=== PATIENT | female | born 1940 | race Caucasian/White ===

== ENCOUNTER → 2016-11-29 | Outpatient (CLI) | payer MEDICARE ==
--- NOTE | 2016-12-05 08:45 | MM ---
Reason for exam: screening (asymptomatic). Last mammogram was performed 1 year and 5 months ago. History: Patient is postmenopausal. Family history of breast cancer in mother at age 50. Excisional biopsy of the left breast, October 19, 2004. Stereotactic core biopsy of the right breast, October 13, 2004. Stereotactic core biopsy of the right breast, October 13, 2004. Benign stereotactic core biopsy of the right breast, September 08, 1999. Cyst aspiration of the right breast. 3 core biopsies of the right breast. Physical Findings: A clinical breast exam by your physician is recommended on an annual basis and results should be correlated with mammographic findings. MG 3D Screening Mammo W/Cad Bilateral CC and MLO view(s) were taken. Prior study comparison: June 29, 2015, bilateral MG 3d screening mammo w/cad. The breast tissue is heterogeneously dense. This may lower the sensitivity of mammography. Previous mammotome biopsy in the right breast. No significant changes when compared with prior studies. ASSESSMENT: Benign, BI-RAD 2 RECOMMENDATION: Routine screening mammogram of both breasts in 1 year.
== END | disposition home or self-care (01) ==
LOC: RADMAMWWP 09:28
PROVIDERS: ATTEND Internal Medicine Geriatric Medicine
DX: Z12.31 Encounter for screening mammogram for malignant neoplasm of breast (principal)
CPT/HCPCS: 77063; G0202

== ENCOUNTER 2017-10-05 17:26 | Emergency (ER) | payer MEDICARE ==
[2017-10-05] MEDS ORDERED: HYDROcodone/APAP 5-325MG 1 EACH TAB PO STA (17:48)
--- NOTE | 2017-10-05 17:51 | ED ---
Lower Extremity Injury HPI - General Chief Complaint: Extremity Injury, Lower Stated Complaint: Ankle Injury Time Seen by Provider: 10/05/17 17:39 Source: EMS Mode of arrival: EMS Limitations: no limitations - History of Present Illness Initial Comments: 77-year-old female patient presents to the emergency department today for complaints of left foot and heel pain. Patient states that she accidentally ran her foot over with her electric wheelchair around 2 PM this afternoon. States that she isn't having significant pain especially with movement to the foot since then. Patient denies any numbness or tingling to the foot. She denies any other injuries. She denies falling down when injury occurred. Patient is currently being treated for DVT to the left lower extremity with his around toe. Patient denies any headache, neck pain, back pain, chest pain, shortness of breath, dizziness, weakness, abdominal pain, nausea, vomiting, or difficulties with bowel movements or urination. - Related Data Home Medications Medication Instructions Recorded Confirmed Atorvastatin [Lipitor] 20 mg PO HS 11/14/14 02/28/15 Oxybutynin Xl [Ditropan XL] 5 mg PO DAILY 11/14/14 02/28/15 PARoxetine HCL 30 mg PO DAILY 11/14/14 02/28/15 Ranitidine HCl 300 mg PO DAILY 11/14/14 02/28/15 Repaglinide 1 mg PO AC-BID 11/14/14 02/28/15 Rivaroxaban [Xarelto] 15 tab PO DAILY 11/14/14 02/28/15 clonazePAM [Clonazepam] 0.5 mg PO TID PRN 11/14/14 02/28/15 Ergocalciferol [Vitamin D2 50,000 unit PO Q7D 11/15/14 02/28/15 (DRISDOL)] Atenolol [Tenormin] 50 mg PO DAILY 02/28/15 02/28/15 Bumetanide [BUMEX] 1 mg PO BID 02/28/15 02/28/15 Potassium Chloride [Klor-Con 20] 20 meq PO DAILY 02/28/15 02/28/15 metFORMIN HCL [Glucophage] 500 mg PO BID 02/28/15 02/28/15 Previous Rx's Medication Instructions Recorded Magnesium Gluconate [Magonate] 500 mg PO BID #60 tablet 03/01/15 Allergies Allergy/AdvReac Type Severity Reaction Status Date / Time cephalexin monohydrate Allergy Unknown Verified 09/21/17 18:58 [From Keflex] cisapride monohydrate Allergy Unknown Verified 09/21/17 18:58 [From Propulsid] codeine Allergy Unknown Verified 09/21/17 18:58 nefazodone HCl [From Serzone] Allergy Unknown Verified 09/21/17 18:58 Review of Systems ROS Statement: Those systems with pertinent positive or pertinent negative responses have been documented in the HPI. ROS Other: All systems not noted in ROS Statement are negative. Past Medical History Past Medical History: Cancer, Heart Failure, COPD, CVA/TIA, Diabetes Mellitus, Deep Vein Thrombosis (DVT), Memory Impairment, Osteoarthritis (OA) Additional Past Medical History / Comment(s): 02-28-15 FALL/HIT HEAD AND BACK. BRONCHITIS,INCONT OF URINE, BLOOD CLOT LT FOOT, SKIN CANCER(FOREHEAD /RT ARM, HIATAL HERNIA, HAD STROKE 2.5 YEARS AGO AND HAS MILD SPEECH CHANGES, LT SIDE WEAKER THAN RT,MILD SHORT TERM MEMORY PORBLEM. , History of Any Multi-Drug Resistant Organisms: None Reported Past Surgical History: Bariatric Surgery, Hysterectomy, Orthopedic Surgery, Tonsillectomy Additional Past Surgical History / Comment(s): manju knees replaced, STOMACH STAPLING, CATARACTS, Past Anesthesia/Blood Transfusion Reactions: No Reported Reaction Past Psychological History: Depression Smoking Status: Current every day smoker Past Alcohol Use History: None Reported Past Drug Use History: None Reported - Past Family History Mother History Unknown: Yes Family Medical History: Cancer, Hypertension Additional Family Medical History / Comment(s): BREAST CANCER Father Family Medical History: Myocardial Infarction ([place]) General Exam Limitations: no limitations General appearance: alert, in no apparent distress, other (This is a well- developed, well-nourished elderly female patient in no acute distress. Vital signs upon presentation are temperature 97.6F, pulse 94, respirations 16, blood pressure 175/77, pulse ox 96% on room air.) Eye exam: Present: normal appearance, PERRL, EOMI. Absent: scleral icterus, conjunctival injection, periorbital swelling ENT exam: Present: normal exam, normal oropharynx, mucous membranes moist Respiratory exam: Present: normal lung sounds bilaterally. Absent: respiratory distress, wheezes, rales, rhonchi, stridor Cardiovascular Exam: Present: regular rate, normal rhythm, normal heart sounds. Absent: systolic murmur, diastolic murmur, rubs, gallop, clicks Extremities exam: Present: full ROM, tenderness (Tenderness over the medial lateral malleolus, tenderness over the heel.), normal capillary refill, other ( Patient has swelling to the left foot. Pedal and posttibial pulses 2+ and equal bilaterally. Skin is pink warm and dry.). Absent: normal inspection, pedal edema, joint swelling, calf tenderness Neurological exam: Present: alert, oriented X3, CN II-XII intact Psychiatric exam: Present: normal affect, normal mood Skin exam: Present: warm, dry, intact, normal color. Absent: rash Course Vital Signs 10/05/17 10/05/17 17:43 19:01 Temperature 97.6 F 97.9 F Pulse Rate 94 89 Respiratory 16 18 Rate Blood Pressure 175/77 180/77 O2 Sat by Pulse 96 96 Oximetry Medical Decision Making - Medical Decision Making 77 showed female patient presented to the emergency department today for evaluation of left foot pain after running it over with her motorized wheelchair. Physical examination did reveal left foot swelling. X-ray of the left ankle and foot were obtained. Did show a nondisplaced fracture at the base of the fifth metatarsal. Patient was placed in a posterior OCL splint. She is instructed to follow-up with the cash control specialist as soon as possible. Return parameters discussed in detail. She verbalizes understanding and agrees with this plan. - Radiology Data Radiology results: report reviewed, image reviewed 3 views of the left foot are obtained. There is a virtually nondisplaced fracture at the base of the fifth metatarsal. Additional displaced fractures not identified with certainty at this time. There is soft tissue swelling noted. Impression by Dr. Bradshaw shows virtually nondisplaced fracture at the base of the fifth metatarsal. 3 views of the left ankle are submitted for evaluation. There is no evidence for fracture or dislocation. Ankle mortise is intact. Soft tissues within normal limits. Impression by Dr. Bradshaw shows no evidence for acute fracture. Disposition Clinical Impression: Fracture of fifth metatarsal bone of left foot Disposition: HOME SELF-CARE Condition: Good Instructions: Foot Fracture in Adults (ED) Additional Instructions: Apply ice to the foot 20 minutes at a time at least 4 times daily. Take medications as directed. Keep foot elevated. Follow-up with orthopedics as soon as possible. Return here immediately for any new, worsening, or concerning symptoms. Is patient prescribed a controlled substance at d/c from ED?: No Referrals: Isacc Mitchell MD [Primary Care Provider] - 1-2 days Timothy Vallejo MD [STAFF PHYSICIAN] - 1-2 days Time of Disposition: 18:59
--- NOTE | 2017-10-05 18:36 | XR ---
EXAMINATION TYPE: XR foot complete LT DATE OF EXAM: 10/05/2017 CLINICAL HISTORY: pain TECHNIQUE: Frontal, lateral and oblique images of the left foot are obtained. COMPARISON: None. FINDINGS: Virtually nondisplaced fracture at the base of the fifth metatarsal. Additional displaced f racture not identified with certainty at this time. There is soft tissue swelling noted. IMPRESSION: Virtually nondisplaced fracture at the base of the fifth metatarsal. ICD 10 closed FRACTURE, INITIAL EVALUATION
--- NOTE | 2017-10-05 18:36 | XR ---
EXAMINATION TYPE: XR ankle complete LT DATE OF EXAM: 10/05/2017 COMPARISON: NONE HISTORY: Pain TECHNIQUE: 3 views of the left ankle are submitted for evaluation. FINDINGS: There is no evidence for fracture or dislocation. Ankle mortise is intact. Soft tissues are within normal limits. IMPRESSION: 1. No evidence for acute fracture.
[2017-10-05 19:03] VITALS: BP 180/77; PULSE 89; RESP 18; TEMP 97.9
== END 2017-10-05 19:30 | disposition home or self-care (01) ==
LOC: EC 17:26
DX: S92.355A Nondisplaced fracture of fifth metatarsal bone, left foot, initial encounter for closed fracture (principal); I50.9 Heart failure, unspecified; M19.90 Unspecified osteoarthritis, unspecified site; E11.9 Type 2 diabetes mellitus without complications; F32.9 Major depressive disorder, single episode, unspecified; F17.200 Nicotine dependence, unspecified, uncomplicated; Z86.73 Personal history of transient ischemic attack (TIA), and cerebral infarction without residual deficits; Z88.1 Allergy status to other antibiotic agents; Z88.5 Allergy status to narcotic agent; Z88.8 Allergy status to other drugs, medicaments and biological substances; Z79.01 Long term (current) use of anticoagulants; Z79.84 Long term (current) use of oral hypoglycemic drugs; Z79.899 Other long term (current) drug therapy; W22.8XXA Striking against or struck by other objects, initial encounter
CPT/HCPCS: 29515; 99283

== ENCOUNTER 2017-10-14 17:05 | Emergency (ER) | payer MEDICARE ==
[2017-10-14 17:11] VITALS: BP 189/85; PULSE 82; RESP 18; TEMP 99
--- NOTE | 2017-10-14 18:21 | US ---
EXAMINATION TYPE: US venous doppler duplex LE LT DATE OF EXAM: 10/14/2017 5:55 PM COMPARISON: NONE CLINICAL HISTORY: Pain. Left ankle swelling. SIDE PERFORMED: Left TECHNIQUE: The lower extremity deep venous system is examined utilizing real time linear array sonog lauren with graded compression, doppler sonography and color-flow sonography. VESSELS IMAGED: External Iliac Vein (EIV) Common Femoral Vein Deep Femoral Vein Greater Saphenous Vein * Femoral Vein Popliteal Vein Small Saphenous Vein * Proximal Calf Veins (* superficial vessels) FINDINGS: Grayscale, color doppler, spectral doppler imaging performed of the deep veins of the lower extremities. There is normal flow, compressibility, vascular waveforms. IMPRESSION: NEGATIVE FOR DEEP VENOUS THROMBOSIS, LEFT LOWER EXTREMITY VENOUS DOPPLER ULTRASOUND.
--- NOTE | 2017-10-14 18:28 | ED ---
Lower Extremity Injury HPI - General Chief Complaint: Extremity Injury, Lower Stated Complaint: lt foot swelling Time Seen by Provider: 10/14/17 17:14 Source: patient, RN notes reviewed Mode of arrival: ambulatory Limitations: no limitations - History of Present Illness Initial Comments: 77-year-old female presents emergency Department chief complaint of increased swelling to her left foot. Patient seen here approximately one week ago diagnosed with a fracture fifth metatarsal. She did follow-up with orthopedics and placed in boot. Patient states that the boot felt tight so she took that off. She did notice increased bruising and swelling to her foot. Denies any paresthesias. She denies any increase in pain. Patient states that she has a history of DVTs and currently takes Xarelto. Patient denies any chest pain, shortness breath, weakness to her extremities. - Related Data Home Medications Medication Instructions Recorded Confirmed clonazePAM [Clonazepam] 0.5 mg PO BID 11/14/14 10/14/17 Bumetanide [BUMEX] 1 mg PO DAILY 02/28/15 10/14/17 Potassium Chloride [Klor-Con 20] 20 meq PO DAILY 02/28/15 10/14/17 metFORMIN HCL [Glucophage] 500 mg PO DAILY 02/28/15 10/14/17 Gabapentin [Neurontin] 300 mg PO DAILY 10/14/17 10/14/17 Metoprolol Tartrate [Lopressor] 25 mg PO BID 10/14/17 10/14/17 Omeprazole 20 mg PO DAILY 10/14/17 10/14/17 Oxybutynin Chloride [Ditropan XL] 10 mg PO DAILY 10/14/17 10/14/17 Rivaroxaban [Xarelto] 20 mg PO DAILY 10/14/17 10/14/17 Allergies Allergy/AdvReac Type Severity Reaction Status Date / Time cephalexin monohydrate Allergy Unknown Verified 10/14/17 17:26 [From Keflex] cisapride monohydrate Allergy Unknown Verified 10/14/17 17:26 [From Propulsid] codeine Allergy Unknown Verified 10/14/17 17:26 nefazodone HCl [From Serzone] Allergy Unknown Verified 10/14/17 17:26 Review of Systems ROS Statement: Those systems with pertinent positive or pertinent negative responses have been documented in the HPI. ROS Other: All systems not noted in ROS Statement are negative. Past Medical History Past Medical History: Cancer, Heart Failure, COPD, CVA/TIA, Diabetes Mellitus, Deep Vein Thrombosis (DVT), Memory Impairment, Osteoarthritis (OA) Additional Past Medical History / Comment(s): 02-28-15 FALL/HIT HEAD AND BACK. BRONCHITIS,INCONT OF URINE, BLOOD CLOT LT FOOT, SKIN CANCER(FOREHEAD /RT ARM, HIATAL HERNIA, HAD STROKE 2.5 YEARS AGO AND HAS MILD SPEECH CHANGES, LT SIDE WEAKER THAN RT,MILD SHORT TERM MEMORY PORBLEM. , History of Any Multi-Drug Resistant Organisms: None Reported Past Surgical History: Bariatric Surgery, Hysterectomy, Orthopedic Surgery, Tonsillectomy Additional Past Surgical History / Comment(s): manju knees replaced, STOMACH STAPLING, CATARACTS, Past Anesthesia/Blood Transfusion Reactions: No Reported Reaction Past Psychological History: Depression Smoking Status: Current every day smoker Past Alcohol Use History: None Reported Past Drug Use History: None Reported - Past Family History Mother History Unknown: Yes Family Medical History: Cancer, Hypertension Additional Family Medical History / Comment(s): BREAST CANCER Father Family Medical History: Myocardial Infarction ([place]) General Exam Limitations: no limitations General appearance: alert, in no apparent distress Head exam: Present: atraumatic, normocephalic, normal inspection Respiratory exam: Present: normal lung sounds bilaterally. Absent: respiratory distress, wheezes, rales, rhonchi, stridor Cardiovascular Exam: Present: regular rate, normal rhythm, normal heart sounds. Absent: systolic murmur, diastolic murmur, rubs, gallop, clicks Extremities exam: Present: other (There is moderate swelling noted to the left lower extremity there is ecchymosis along the lateral aspect foot is neurovascularly intact with cap refill less than 2 seconds there is no tenderness to the calf) Skin exam: Present: warm, dry Course Vital Signs 10/14/17 17:07 Temperature 99 F Pulse Rate 82 Respiratory 18 Rate Blood Pressure 189/85 O2 Sat by Pulse 95 Oximetry Medical Decision Making - Medical Decision Making 77-year-old female presented from for increased swelling to her left foot. She does have a noted fracture repeat x-rays were performed there is no significant interval changes. Patient had ultrasound which is negative for acute DVT and patient is on current anticoagulation. There is no concerns for compartment syndrome at this time. She is advised that she is to elevate her foot where her orthopedic boot as directed and follow-up with orthopedics. Disposition Clinical Impression: Fracture of fifth metatarsal bone of left foot, Foot swelling Disposition: HOME SELF-CARE Condition: Stable Instructions: Foot Fracture in Adults (ED) Additional Instructions: Wear your orthopedic boot as directed and follow-up with orthopedics. Please elevate your foot when seated.Please return to the Emergency Department if symptoms worsen or any other concerns. Is patient prescribed a controlled substance at d/c from ED?: No Referrals: Isacc Mitchell MD [Primary Care Provider] - 1-2 days Gilberto Ramey MD [STAFF PHYSICIAN] - 1-2 days Time of Disposition: 18:28
--- NOTE | 2017-10-14 18:32 | XR ---
PROCEDURE: XR foot complete LT - 3 views DATE AND TIME: 10/14/2017 6:24 PM REFERRING PHYSICIAN: Vimal Vang CLINICAL INDICATION: PHH, Pain TECHNIQUE: Department protocol. COMPARISON: 10/05/2017 radiographs FINDINGS: The previously seen nondisplaced fracture of the base of the fifth metatarsal has similar a ppearance. There are no other fractures. IMPRESSION: Nondisplaced fracture.
== END 2017-10-14 18:41 | disposition home or self-care (01) ==
LOC: EC 17:05
DX: S92.352A Displaced fracture of fifth metatarsal bone, left foot, initial encounter for closed fracture (principal); I50.9 Heart failure, unspecified; E11.9 Type 2 diabetes mellitus without complications; D32.9 Benign neoplasm of meninges, unspecified; F17.200 Nicotine dependence, unspecified, uncomplicated; Z86.718 Personal history of other venous thrombosis and embolism; Z86.73 Personal history of transient ischemic attack (TIA), and cerebral infarction without residual deficits; Z88.1 Allergy status to other antibiotic agents; Z88.5 Allergy status to narcotic agent; Z88.8 Allergy status to other drugs, medicaments and biological substances; Z79.01 Long term (current) use of anticoagulants; Z79.84 Long term (current) use of oral hypoglycemic drugs; Z79.899 Other long term (current) drug therapy; W22.8XXA Striking against or struck by other objects, initial encounter
CPT/HCPCS: 99284

== ENCOUNTER 2017-12-08 13:33 | Emergency (ER) | payer MEDICARE ==
--- NOTE | 2017-12-08 14:05 | ED ---
General Adult HPI - General Chief complaint: Extremity Injury, Lower Stated complaint: Foot Injury Time Seen by Provider: 12/08/17 13:52 Source: patient, RN notes reviewed Mode of arrival: wheelchair Limitations: no limitations - History of Present Illness Initial comments: Patient 77-year-old female presented to the emergency room today with a chief complaint of some pain down into her left toes. She has been to broken foot that occurred approximately 2-3 months ago. Patient does admit to chronic blood clots in the left leg and also his had one in the upper extremities well. She currently is raw throat. Patient states she's not noticed any increased swelling into the left leg. No increased pain to the left calf area. She admits that she woke up this morning with some numbness tingling sensation to the left toes. She states it's gone away still has some discomfort with flexion and extension of the toes. Denies any other complaints or symptoms. Patient denies any recent fever, chills, shortness of breath, chest pain, back pain, abdominal pain, nausea or vomiting, headaches or visual changes, or any other complaints. - Related Data Home Medications Medication Instructions Recorded Confirmed clonazePAM [Clonazepam] 0.5 mg PO BID 11/14/14 10/14/17 Bumetanide [BUMEX] 1 mg PO DAILY 02/28/15 10/14/17 Potassium Chloride [Klor-Con 20] 20 meq PO DAILY 02/28/15 10/14/17 metFORMIN HCL [Glucophage] 500 mg PO DAILY 02/28/15 10/14/17 Gabapentin [Neurontin] 300 mg PO DAILY 10/14/17 10/14/17 Metoprolol Tartrate [Lopressor] 25 mg PO BID 10/14/17 10/14/17 Omeprazole 20 mg PO DAILY 10/14/17 10/14/17 Oxybutynin Chloride [Ditropan XL] 10 mg PO DAILY 10/14/17 10/14/17 Rivaroxaban [Xarelto] 20 mg PO DAILY 10/14/17 10/14/17 Allergies Allergy/AdvReac Type Severity Reaction Status Date / Time cephalexin monohydrate Allergy Unknown Verified 12/08/17 13:51 [From Keflex] cisapride monohydrate Allergy Unknown Verified 12/08/17 13:51 [From Propulsid] codeine Allergy Unknown Verified 12/08/17 13:51 nefazodone HCl [From Serzone] Allergy Unknown Verified 12/08/17 13:51 Review of Systems ROS Statement: Those systems with pertinent positive or pertinent negative responses have been documented in the HPI. ROS Other: All systems not noted in ROS Statement are negative. Past Medical History Past Medical History: Cancer, Heart Failure, COPD, CVA/TIA, Diabetes Mellitus, Deep Vein Thrombosis (DVT), Memory Impairment, Osteoarthritis (OA) Additional Past Medical History / Comment(s): 02-28-15 FALL/HIT HEAD AND BACK. BRONCHITIS,INCONT OF URINE, BLOOD CLOT LT FOOT, SKIN CANCER(FOREHEAD /RT ARM, HIATAL HERNIA, HAD STROKE 2.5 YEARS AGO AND HAS MILD SPEECH CHANGES, LT SIDE WEAKER THAN RT,MILD SHORT TERM MEMORY PORBLEM. , History of Any Multi-Drug Resistant Organisms: None Reported Past Surgical History: Bariatric Surgery, Hysterectomy, Orthopedic Surgery, Tonsillectomy Additional Past Surgical History / Comment(s): manju knees replaced, STOMACH STAPLING, CATARACTS, Past Anesthesia/Blood Transfusion Reactions: No Reported Reaction Past Psychological History: Depression Smoking Status: Current every day smoker Past Alcohol Use History: None Reported Past Drug Use History: None Reported - Past Family History Mother History Unknown: Yes Family Medical History: Cancer, Hypertension Additional Family Medical History / Comment(s): BREAST CANCER Father Family Medical History: Myocardial Infarction ([place]) General Exam - General Exam Comments Initial Comments: General: The patient is awake and alert, in no distress, and does not appear acutely ill. Eye: Pupils are equal, round and reactive to light, extra-ocular movements are intact. No nystagmus. There is normal conjunctiva bilaterally. No signs of icterus. Ears, nose, mouth and throat: There are moist mucous membranes and no oral lesions. Neck: The neck is supple, there is no tenderness or JVD. Cardiovascular: There is a regular rate and rhythm. No murmur, rub or gallop is appreciated. Respiratory: Lungs are clear to auscultation, respirations are non-labored, breath sounds are equal. No wheezes, stridor, rales, or rhonchi. Musculoskeletal: Normal ROM, no tenderness. Strength 5/5. Sensation intact. Pedal Pulses equal bilaterally 2+. Mild pitting down to the left foot. Neurological: A&O x 3. CN II-XII intact, There are no obvious motor or sensory deficits. Coordination appears grossly intact. Speech is normal. Skin: Skin is warm and dry and no rashes or lesions are noted. Psychiatric: Cooperative, appropriate mood & affect, normal judgment. Limitations: no limitations Course Vital Signs 12/08/17 13:47 Temperature 98.2 F Pulse Rate 75 Respiratory 20 Rate Blood Pressure 138/61 O2 Sat by Pulse 96 Oximetry Medical Decision Making - Medical Decision Making Patient's labs been reviewed. Patient's ultrasound negative for any evidence of DVT. X-ray of the left foot does show possible nonunion of the third and fifth metatarsal when compared previous x-ray on 10/14/2017. Patient does have a boot at home that she wears. Patient states that she does not want but she does transfer. Patient advised to use this with transfers advised follow-up with orthopedics tomorrow. Advised return if any symptoms increase or worsen. - Lab Data Result diagrams: 12/08/17 14:28 12/08/17 14:28 Lab Results 12/08/17 12/08/17 12/08/17 Range/Units 14:28 14:28 14:28 WBC 8.0 (3.8-10.6) k/uL RBC 4.26 (3.80-5.40) m/uL Hgb 11.7 (11.4-16.0) gm/dL Hct 36.2 (34.0-46.0) % MCV 84.8 (80.0-100.0) fL MCH 27.5 (25.0-35.0) pg MCHC 32.4 (31.0-37.0) g/dL RDW 14.8 (11.5-15.5) % Plt Count 247 (150-450) k/uL Neutrophils % 59 % Lymphocytes % 31 % Monocytes % 5 % Eosinophils % 2 % Basophils % 1 % Neutrophils # 4.8 (1.3-7.7) k/uL Lymphocytes # 2.5 (1.0-4.8) k/uL Monocytes # 0.4 (0-1.0) k/uL Eosinophils # 0.2 (0-0.7) k/uL Basophils # 0.0 (0-0.2) k/uL PT 10.5 (9.0-12.0) sec INR 1.1 (<1.2) APTT 22.7 (22.0-30.0) sec Sodium 139 (137-145) mmol/L Potassium 3.6 (3.5-5.1) mmol/L Chloride 96 L (98-107) mmol/L Carbon Dioxide 32 H (22-30) mmol/L Anion Gap 11 mmol/L BUN 22 H (7-17) mg/dL Creatinine 0.90 (0.52-1.04) mg/dL Est GFR (CKD-EPI)AfAm 72 (>60 ml/min/1.73 sqM) Est GFR (CKD-EPI)NonAf 63 (>60 ml/min/1.73 sqM) Glucose 93 (74-99) mg/dL Calcium 8.9 (8.4-10.2) mg/dL Total Bilirubin 0.2 (0.2-1.3) mg/dL AST 16 (14-36) U/L ALT 21 (9-52) U/L Alkaline Phosphatase 73 (38-126) U/L Total Protein 6.4 (6.3-8.2) g/dL Albumin 3.7 (3.5-5.0) g/dL Disposition Clinical Impression: Foot fracture Disposition: HOME SELF-CARE Condition: Good Instructions: Foot Fracture in Adults (ED) Additional Instructions: Please use foot brace when up and moving around. Please follow-up with orthopedics tomorrow as discussed. Please return to emergency room if the symptoms increase or worsen or for any other concerns. Is patient prescribed a controlled substance at d/c from ED?: No Referrals: Isacc Mitchell MD [REFERRING] - 1-2 days Gilberto Ramey MD [STAFF PHYSICIAN] - 1-2 days Time of Disposition: 16:52
--- NOTE | 2017-12-08 14:37 | XR ---
EXAMINATION TYPE: XR foot complete LT DATE OF EXAM: 12/08/2017 COMPARISON: NONE HISTORY: 77-year-old female with pain after injury 2 weeks ago TECHNIQUE: 3 views FINDINGS: Transverse fracture through the base of the fifth metatarsal at the level of the fourth-fifth interme tatarsal joint. This appears relatively similar to 10/14/2017. There is some medial lucency at the bas e of the third metatarsal that could represent projectional artifact or some early resorptive changes of healing involving in incomplete, nondisplaced fracture. Midfoot alignment is maintained. Marked d orsal soft tissue swelling. Small plantar calcaneal spur. Some chronic bony spurring along the latera l base of the third proximal phalanx. IMPRESSION: 1. Similar appearance to the nondisplaced fracture at the base of the fifth metatarsal (as compared t o 10/14/2017). The patient should be closely monitored to exclude delayed or nonunion in the future. 2. Subtle lucency at the medial base of the third metatarsal could represent projectional overlap or resorptive changes of healing of a subtle incomplete fracture. 3. Marked dorsal soft tissue swelling persists.
[2017-12-08 14:43] LABS: Basophils % (A) 1 %; Eosinophils # (A) 0.2 k/uL (0-0.7); Eosinophils % (A) 2 %; HCT 36.2 % (34.0-46.0); HGB 11.7 gm/dL (11.4-16.0); Lymphocytes # (A) 2.5 k/uL (1.0-4.8); Lymphocytes % (A) 31 %; MCH 27.5 pg (25.0-35.0); MCHC 32.4 g/dL (31.0-37.0); MCV 84.8 fL (80.0-100.0); Mean Platelet Volume 7.6; Monocytes # (A) 0.4 k/uL (0-1.0); Monocytes % (A) 5 %; Neutrophils # (A) 4.8 k/uL (1.3-7.7); Neutrophils % (A) 59 %; Platelet Count 247 k/uL (150-450); RBC 4.26 m/uL (3.80-5.40); RDW 14.8 % (11.5-15.5)
[2017-12-08 14:51] LABS: Albumin 3.7 g/dL (3.5-5.0); Calcium 8.9 mg/dL (8.4-10.2); INR 1.1 (<1.2); Partial Thromboplastin Time 22.7 sec (22.0-30.0); Potassium 3.6 mmol/L (3.5-5.1); Prothrombin Time 10.5 sec (9.0-12.0); Total Bilirubin 0.2 mg/dL (0.2-1.3); Total Protein 6.4 g/dL (6.3-8.2)
--- NOTE | 2017-12-08 16:03 | US ---
EXAMINATION TYPE: US venous doppler duplex LE LT DATE OF EXAM: 12/08/2017 3:58 PM COMPARISON: NONE CLINICAL HISTORY: 77-year-old female Pain. Left foot edema for 2-3 months SIDE PERFORMED: left TECHNIQUE: The lower extremity deep venous system is examined utilizing real time linear array sonog lauren with graded compression, doppler sonography and color-flow sonography. FINDINGS: VESSELS IMAGED: External Iliac Vein (EIV) Common Femoral Vein Deep Femoral Vein Greater Saphenous Vein * Femoral Vein Popliteal Vein Small Saphenous Vein * Proximal Calf Veins (* superficial vessels) Left Leg: No evidence of DVT IMPRESSION: No evidence for DVT within the left lower extremity imaged from the groin to the upper calf.
[2017-12-08 17:14] VITALS: BP 130/78; PULSE 76; RESP 18; TEMP 98.2
== END 2017-12-08 17:12 | disposition home or self-care (01) ==
LOC: EC 13:33
DX: S92.355K Nondisplaced fracture of fifth metatarsal bone, left foot, subsequent encounter for fracture with nonunion (principal); I50.9 Heart failure, unspecified; E11.9 Type 2 diabetes mellitus without complications; F32.9 Major depressive disorder, single episode, unspecified; F17.200 Nicotine dependence, unspecified, uncomplicated; Z85.828 Personal history of other malignant neoplasm of skin; Z86.73 Personal history of transient ischemic attack (TIA), and cerebral infarction without residual deficits; Z86.718 Personal history of other venous thrombosis and embolism; Z96.653 Presence of artificial knee joint, bilateral; Z98.84 Bariatric surgery status; Z98.890 Other specified postprocedural states; Z79.01 Long term (current) use of anticoagulants; Z79.84 Long term (current) use of oral hypoglycemic drugs; Z79.899 Other long term (current) drug therapy; Z88.1 Allergy status to other antibiotic agents; Z88.5 Allergy status to narcotic agent; Z88.8 Allergy status to other drugs, medicaments and biological substances
CPT/HCPCS: 36415; 80053; 85025; 85610; 85730; 99284